=== PATIENT | female | born 1960 | race Caucasian/White ===

== ENCOUNTER 2022-01-11 23:52 | Inpatient (IN) | payer MEDICARE, MEDICAID ==
[~2022-01-11] VITALS: Ht 162.6 cm; Wt 59.1 kg
[~2022-01-11 23:52] MED LIST: ATOR20TA66 PO; BUPR-72 PO; ESCI20TA39 PO; GABA300C PO; KEP500T PO; LEVO100T9 PO; MULT-25 PO; [UNRECOGNIZED DRUG - CODE] PO
[2022-01-12 00:36] LABS: BASOPHILS # (AUTO) 0.1 X10'3 (0-0.2); EOSINOPHILS # (AUTO) 0.1 X10'3 (0-0.9); HEMOGLOBIN 12.2 g/dl (12.0-16.0); LYMPHOCYTES # (AUTO) 1.4 X10'3 (1.1-4.8); MEAN PLATELET VOLUME 6.5 FL (7.4-10.4); MONOCYTES # (AUTO) 0.5 X10'3 (0-0.9); NEUTROPHILS # (AUTO) 2.7 X10'3 (1.8-7.7); WHITE BLOOD COUNT 4.9 X10'3 (4.5-11.0)
[2022-01-12 00:37] LABS: EOSINOPHILS % (AUTO) 1.6 % (0-6); HEMATOCRIT 35.6 % (35.0-45.0); LYMPHOCYTES % (AUTO) 29.6 % (21-51); MEAN CORPUSCULAR HEMOGLOBIN 34.6 PG (27.0-31.0); MEAN CORPUSCULAR HGB CONC 34.3 g/dL (33.0-36.5); MEAN CORPUSCULAR VOLUME 100.8 FL (78-98); MONOCYTES % (AUTO) 10.7 % (2-12); NEUTROPHILS % (AUTO) 56.1 % (42-75); PLATELET COUNT 397 X10'3 (140-440); RED BLOOD COUNT 3.53 X10'6 (4.20-5.60)
--- NOTE | 2022-01-12 00:45 | NUR ---
pt presents to the ed tx area lethargic, sedated, aggitated in 4-point restraint via ems; per ems the pt has been combative, non-complaint, and possibly has drugs/etoh on board; per ems the pt has a hx of brain tumor, which was removed two years ago; the pt is unresponsive to verbal stimuli, and continued to be restless, combative and aggitated, at , pt on monitor
[2022-01-12 00:49] LABS: APTT 25 SECONDS (22-32)
[2022-01-12 00:53] LABS: ALANINE AMINOTRANSFERASE 44 U/L (12-78); ALBUMIN 3.8 G/DL (3.4-5.0); ALBUMIN/GLOBULIN RATIO 1.3 (1.1-1.5); ALKALINE PHOSPHATASE 167 IU/L (46-116); ANION GAP 13 (8-16); ASPARTATE AMINO TRANSFERASE 38 U/L (10-37); BILIRUBIN,TOTAL 0.6 MG/DL (0.1-1.0); BLOOD UREA NITROGEN 9 MG/DL (7-18); BUN/CREATININE RATIO 13.4 (6.6-38.0); CALCIUM 8.2 MG/DL (8.5-10.1); CHLORIDE 105 MMOL/L (99-107); CREATININE 0.67 MG/DL (0.40-0.90); GLUCOSE 134 MG/DL (70-104); POTASSIUM 3.4 MMOL/L (3.5-5.1); SODIUM 143 MMOL/L (135-145); TOTAL CARBON DIOXIDE 25.5 MMOL/L (24-32); TOTAL PROTEIN 6.7 G/DL (6.4-8.2); eGFR 90 ML/MIN
--- NOTE | 2022-01-12 01:00 | NUR ---
labs collected and sent
[2022-01-12] MEDS ORDERED: levetiracetam-NS 1000mg/100ml 100 ML IV ONE ×2 (01:30→02:25)
--- NOTE | 2022-01-12 01:30 | NUR ---
Head CT done
--- NOTE | 2022-01-12 01:35 | NUR ---
Seizure precaution initiated
--- NOTE | 2022-01-12 02:00 | NUR ---
pt medicated per mar
[2022-01-12] MEDS ORDERED: LORazepam 2 mg/ml vial IV ONE (02:20)
[2022-01-12] MEDS ORDERED: HYDR-3972 PO (02:26)
[2022-01-12] MEDS ORDERED: BACL10TA2 PO (02:26)
--- NOTE | 2022-01-12 02:30 | NUR ---
Pt awake, combative and confused, md aware
[2022-01-12] MEDS ORDERED: acetaminophen 325mg tablet PO PRN ×2 (02:40)
[2022-01-12] MEDS ORDERED: diphenhydrAMINE 50 mg/ml inj IV PRN (02:40)
[2022-01-12] MEDS ORDERED: magnesium 2GM in 50ml NS 50 ML IV PRN (02:40)
[2022-01-12] MEDS ORDERED: mag hydrox/Alum hydrox/simeth 30ml oral suspension PO PRN (02:40)
[2022-01-12] MEDS ORDERED: morphine 2 MG/ML inj. syringe IV PRN ×2 (02:40)
[2022-01-12] MEDS ORDERED: magnesium 4gm in 100ml NS 100 ML IV PRN (02:40)
[2022-01-12] MEDS ORDERED: dextrose 50%-water 50ml dispensing syringe IV PRN (02:40)
[2022-01-12] MEDS ORDERED: ondansetron 4mg rapidly disintigrating tab PO PRN (02:40)
[2022-01-12] MEDS ORDERED: magnesium hydroxide 30ml (MOM) UD suspension PO PRN (02:40)
[2022-01-12] MEDS ORDERED: HYDROcodone/acetaminophen 5mg/325mg tablet PO PRN (02:40)
[2022-01-12] MEDS ORDERED: acetaminophen 650mg rectal suppository RC PRN (02:40)
[2022-01-12] MEDS ORDERED: bisacodyl 10mg suppository rectal RC PRN (02:40)
[2022-01-12] MEDS ORDERED: haloperidol 5mg tablet PO PRN (02:40)
[2022-01-12] MEDS ORDERED: haloperidol lactate 5mg/ml inj IM PRN (02:40)
[2022-01-12] MEDS ORDERED: ondansetron/PF 4mg/2ml inj IV PRN (02:40)
[2022-01-12] MEDS ORDERED: potassium Cl 20 mEq SR tablet PO PRN (02:40)
[2022-01-12] MEDS ORDERED: diphenhydrAMINE 25mg capsule PO PRN (02:40)
[2022-01-12] MEDS ORDERED: magnesium Cl slow-release 64mg tablet PO PRN (02:40)
--- NOTE | 2022-01-12 02:45 | NUR ---
Straight cath for 150 cc clear yellow urine; pt lanre pro well.
[2022-01-12 03:03] LABS: CLARITY,URINE CLEAR (Clear); COLOR,URINE YELLOW (Yellow); GLUCOSE, URINE NEGATIVE (Neg); KETONES,URINE NEGATIVE (Neg); LEUKOCYTE ESTERASE ,URINE NEGATIVE (Neg); NITRITES, URINE NEGATIVE (Neg); OCCULT BLOOD,URINE MODERATE (Neg); PROTEIN,URINE NEGATIVE (Neg); UROBILINOGEN,URINE 0.2 E.U/dL (0.2-1.0)
[2022-01-12 03:17] LABS: UA COLLECTION TYPE STRAIGHT CATH
[2022-01-12 03:18] LABS: BACTERIA,URINE FEW /HPF (Neg); MUCUS STRANDS FEW /LPF (Neg); SQUAMOUS EPITHELIAL CELL,UR FEW /LPF (FEW); URINE AMPHETAMINE SCREEN NEGATIVE (Neg); URINE BARBITUATE SCREEN NEGATIVE (Neg); URINE BENZODIAZEPINES SCREEN NEGATIVE (Neg); URINE CANNABINOID SCREEN NEGATIVE (Neg); URINE COCAINE SCREEN NEGATIVE (Neg); URINE METHADONE SCREEN NEGATIVE (Neg); URINE OPIATE SCREEN NEGATIVE (Neg); URINE PHENCYCLIDINE SCREEN NEGATIVE (Neg); WBC,URINE 0-4 /HPF (0-4)
[2022-01-12] MEDS: dextrose 5%-1/2 normal saline 1,000 ML IV SCH ×3 (03:23→23:15)
[2022-01-12 03:52] LABS: CREATINE KINASE 95 U/L (26-192); LIPASE < 50 U/L (73-393); MAGNESIUM 1.6 MG/DL (1.5-2.4); PHOSPHORUS 3.2 MG/DL (2.3-4.5); POTASSIUM 3.1 MMOL/L (3.5-5.1)
[2022-01-12 04:33] LABS: HEMOGLOBIN A1C 5.3 % (4.5-6.2)
--- NOTE | 2022-01-12 05:30 | NUR ---
Call received from Minerva , claiming to be mother of pt., states the pt has been drinking and combative, all weekend. Minerva states the pt got stuck between the sofa and table, and that's when she decided to call the ambulance.
[2022-01-12] MEDS: docusate sod 100mg capsule PO SCH ×2 (07:27→20:00)
[2022-01-12] MEDS: pantoprazole 40MG/NS 100ML BAG 100 ML IV SCH (07:27)
[2022-01-12] MEDS: thiamine 100mg/ml 2ml inj. IV SCH ×3 (07:27→21:01)
[2022-01-12] MEDS: LORazepam 2 mg/ml vial IV PRN ×2 (07:28→09:31)
[2022-01-12] MEDS: rifaximin 550mg tablet PO SCH ×2 (08:00→20:00)
[2022-01-12] MEDS ORDERED: lactulose 20gm/30ml cup PO SCH (08:00)
[2022-01-12] MEDS: K and/or MAG REPLACEMENT MC SCH ×2 (08:19→20:00)
[2022-01-12] MEDS: heparin, porcine 5000 units/ml vial SQ SCH ×2 (08:20→21:01)
[2022-01-12] MEDS: potassium CL 10mEq/100ml bag 100 ML IV PRN ×3 (08:20→16:34)
[2022-01-12] MEDS: lactulose 20gm/30ml cup PO SCH ×3 (08:55→20:00)
[2022-01-12] MEDS: levetiracetam inj 750 MG in normal saline 100ml IV soln 100 ML IV SCH ×2 (09:30→21:02)
[2022-01-12 11:30] VITALS: BP 174/83
--- NOTE | 2022-01-12 11:30 | NUR ---
Patient arrived to the floor via gurney and required assist x3 to transfer to bed. Patient non responsive at this time and non-verbal. Vital signs obtained, and are within normal limits. Patient is excessively drooling, highly agitated, and resistive to care. This nurse and floor staff provided personal care and implemented seizure precautions. Patient appears to be sleeping at this time, with no signs of distress noted. IV fluids started per order, potassium replacement continued per protocol. Will re-evaluate mental status throughout remainder of shift.
[2022-01-12 14:00] VITALS: BP 161/93
--- NOTE | 2022-01-12 14:30 | NUR ---
Patient continues to sleep and is not easily arousable. Patient shaken with minimal response. Opens and closes eyes periodically when name is called. When moved, continues to return to the position on her left side and appears comfortable. IV fluids infusing per order. Incontinence care provided. Will continue to monitor.
--- NOTE | 2022-01-12 17:05 | NUR ---
Morning meds not given as patient is unresponsive and unable to take PO meds at this time.
--- NOTE | 2022-01-12 17:28 | NUR ---
Paged at this time with the following concern; Raisa Gutierrez RM [id number] Patient has been sleep since arrived on unit. Beginning to open eyes but can not talk. Appears to have left side facial drooping and drooling,, Can you come see the patient please. Nallely OSBORNE ext [phone]
[2022-01-12 18:00] VITALS: BP 157/90
--- NOTE | 2022-01-12 18:20 | NUR ---
Problems reprioritized. Patient report given, questions answered & plan of care reviewed with Lesa OSBORNE.
[2022-01-12] MEDS ORDERED: temazepam 15mg capsule PO PRN (21:00)
[2022-01-12] MEDS: folic acid 1mg/0.2ml inj IV SCH (21:01)
[2022-01-13 02:00] VITALS: BP 160/95
[2022-01-13] MEDS: lactulose 20gm/30ml cup PO SCH ×5 (02:00→21:35)
--- NOTE | 2022-01-13 04:00 | NUR ---
Pt is able to respond to verbal and touch stimuli.
[2022-01-13 06:00] VITALS: BP 166/90
--- NOTE | 2022-01-13 06:30 | NUR ---
Problems reprioritized. Patient report given, questions answered & plan of care reviewed with Fani OSBORNE.
[2022-01-13 06:45] LABS: BASOPHILS # (AUTO) 0.1 X10'3 (0-0.2); EOSINOPHILS # (AUTO) 0.2 X10'3 (0-0.9); HEMATOCRIT 36.8 % (35.0-45.0); HEMOGLOBIN 12.5 g/dl (12.0-16.0); LYMPHOCYTES # (AUTO) 1.7 X10'3 (1.1-4.8); LYMPHOCYTES % (AUTO) 20.3 % (21-51); MEAN CORPUSCULAR HEMOGLOBIN 34.9 PG (27.0-31.0); MEAN CORPUSCULAR HGB CONC 34.1 g/dL (33.0-36.5); MEAN CORPUSCULAR VOLUME 102.3 FL (78-98); MONOCYTES # (AUTO) 0.8 X10'3 (0-0.9); MONOCYTES % (AUTO) 9.3 % (2-12); NEUTROPHILS # (AUTO) 5.6 X10'3 (1.8-7.7); NEUTROPHILS % (AUTO) 67.4 % (42-75); PLATELET COUNT 365 X10'3 (140-440); RED CELL DISTRIBUTION WIDTH 16.5 % (11.5-14.5); WHITE BLOOD COUNT 8.3 X10'3 (4.5-11.0)
--- NOTE | 2022-01-13 07:09 | NUR ---
Ru consult: Noted ru 11, no open wounds documented. Addendum: 01/13/22 at [address] Amended: Links added.
[2022-01-13] MEDS: K and/or MAG REPLACEMENT MC SCH ×2 (08:00→20:00)
[2022-01-13 08:05] LABS: ALANINE AMINOTRANSFERASE 34 U/L (12-78); ALBUMIN 3.4 G/DL (3.4-5.0); ALBUMIN/GLOBULIN RATIO 1.3 (1.1-1.5); ALKALINE PHOSPHATASE 167 IU/L (46-116); ANION GAP 17 (8-16); ASPARTATE AMINO TRANSFERASE 48 U/L (10-37); BILIRUBIN,TOTAL 1.3 MG/DL (0.1-1.0); BLOOD UREA NITROGEN 6 MG/DL (7-18); BUN/CREATININE RATIO 10.5 (6.6-38.0); CALCIUM 8.2 MG/DL (8.5-10.1); CHLORIDE 107 MMOL/L (99-107); CREATININE 0.57 MG/DL (0.40-0.90); GLUCOSE 108 MG/DL (70-104); MAGNESIUM 1.4 MG/DL (1.5-2.4); POTASSIUM 3.3 MMOL/L (3.5-5.1); SODIUM 144 MMOL/L (135-145); TOTAL CARBON DIOXIDE 20.1 MMOL/L (24-32); TOTAL PROTEIN 6.1 G/DL (6.4-8.2); eGFR > 90 ML/MIN
[2022-01-13] MEDS: rifaximin 550mg tablet PO SCH ×2 (09:12→21:37)
[2022-01-13] MEDS: docusate sod 100mg capsule PO SCH ×2 (09:15→21:36)
[2022-01-13] MEDS: heparin, porcine 5000 units/ml vial SQ SCH ×2 (09:15→21:37)
--- NOTE | 2022-01-13 09:23 | NUR ---
Paged Dr. Berman with the following concern; Raisa Gutierrez rm [id number] Left arm swollen and warm to touch 4 plus edema
[2022-01-13 11:00] VITALS: BP 163/80
[2022-01-13] MEDS: pantoprazole 40MG/NS 100ML BAG 100 ML IV SCH (11:04)
[2022-01-13] MEDS: folic acid 1mg/0.2ml inj IV SCH (11:06)
[2022-01-13] MEDS ORDERED: acetaminophen 325mg tablet PO PRN (11:20)
[2022-01-13] MEDS ORDERED: acetaminophen 120MG suppository, rectal RC PRN (11:20)
[2022-01-13] MEDS: thiamine 100mg/ml 2ml inj. IV SCH ×3 (11:24→21:37)
[2022-01-13] MEDS: levetiracetam inj 750 MG in normal saline 100ml IV soln 100 ML IV SCH ×2 (11:24→21:37)
[2022-01-13] MEDS ORDERED: iohexol 300mg/ml 100ml inj. ONE (12:07)
[2022-01-13] MEDS ORDERED: LEVE500T99 PO (13:48)
[2022-01-13] MEDS ORDERED: ATOR40TA PO (13:50)
--- NOTE | 2022-01-13 14:53 | NUR ---
PRESSURE ULCER EDUCATION: DEFINITION: A pressure ulcer is an area of skin that breaks down when you stay in one position too long. The constant pressure against the skin reduces the blood flow to that area and the affected tissue dies. CAUSES: "Being bedridden or in a wheelchair "Fragile skin "Having a chronic condition, such as diabetes or vascular disease "Inability to move certain parts of your body without assistance "Older age "Incontinence of urine or stool SYMPTOMS: "A reddened area that DOES NOT turn white when pressed on - this can be the beginning of a pressure ulcer "A blister, deep sore or a crater - these can be advanced pressure ulcers FIRST AID: "Relieve the pressure on this area "Keep the area clean and dry "Call your primary doctor if you see any of the above symptoms "DO NOT massage the area "DO NOT use a donut shaped or ring shaped pillow- these actually interfere with the blood flow and cause complications PREVENTION: "Check for pressure ulcers everyday "Change position at least every two hours to relieve pressure "Use items that help relieve pressure- pillows, sheepskin, foam padding, and powders. "Keep skin clean and dry "Eat healthy well balanced meals "Exercise daily IF YOU SEE ANY OF THESE SYMPTOMS WHILE IN THE HOSPITAL - TELL YOUR NURSE IMMEDIATELY. IF YOU SEE ANY OF THESE SYMPTOMS WHILE AT HOME OR HAVE ANY QUESTIONS OR CONCERNS ABOUT PRESSURE ULCERS - CALL YOUR PRIMARY DOCTOR IMMEDIATELY. Addendum: 01/13/22 at 1453 by Uma Cheung RN Amended: Links added.
[2022-01-13 15:00] VITALS: BP 142/72
[2022-01-13 18:00] VITALS: BP 178/89
[2022-01-13] MEDS: dextrose 5%-1/2 normal saline 1,000 ML IV SCH ×2 (18:40→20:00)
[2022-01-13] MEDS: potassium Cl 20 mEq SR tablet PO PRN (21:36)
[2022-01-14] MEDS ORDERED: baclofen 10mg tablet PO PRN (00:25)
[2022-01-14] MEDS ORDERED: VANCOMYCIN 1GM/200ML IVPB 200 ML IV SCH (01:00)
[2022-01-14] MEDS: lactulose 20gm/30ml cup PO SCH ×5 (01:07→16:00)
[2022-01-14] MEDS: potassium Cl 20 mEq SR tablet PO PRN ×3 (01:09→11:15)
[2022-01-14] MEDS: piperacillin/tazo 4.5gm/100ml 100 ML IV SCH ×2 (01:33→11:32)
[2022-01-14 02:30] VITALS: BP 162/80
[2022-01-14] MEDS ORDERED: LORazepam 2 mg/ml vial IV PRN (02:40)
[2022-01-14] MEDS ORDERED: LORazepam 1 MG tablet PO PRN (02:40)
[2022-01-14] MEDS: dextrose 5%-1/2 normal saline 1,000 ML IV SCH (04:40)
[2022-01-14 06:00] VITALS: BP 137/75
[2022-01-14 07:26] LABS: BASOPHILS # (AUTO) 0.1 X10'3 (0-0.2); BASOPHILS % (AUTO) 1.3 % (0-1); EOSINOPHILS # (AUTO) 0.2 X10'3 (0-0.9); EOSINOPHILS % (AUTO) 3.8 % (0-6); HEMATOCRIT 31.1 % (35.0-45.0); HEMOGLOBIN 10.8 g/dl (12.0-16.0); LYMPHOCYTES # (AUTO) 1.5 X10'3 (1.1-4.8); LYMPHOCYTES % (AUTO) 25.6 % (21-51); MEAN CORPUSCULAR HEMOGLOBIN 35.1 PG (27.0-31.0); MEAN CORPUSCULAR HGB CONC 34.7 g/dL (33.0-36.5); MEAN CORPUSCULAR VOLUME 101.1 FL (78-98); MEAN PLATELET VOLUME 6.9 FL (7.4-10.4); MONOCYTES # (AUTO) 0.5 X10'3 (0-0.9); MONOCYTES % (AUTO) 9.2 % (2-12); NEUTROPHILS # (AUTO) 3.6 X10'3 (1.8-7.7); NEUTROPHILS % (AUTO) 60.1 % (42-75); PLATELET COUNT 362 X10'3 (140-440); RED BLOOD COUNT 3.08 X10'6 (4.20-5.60); RED CELL DISTRIBUTION WIDTH 16.1 % (11.5-14.5); WHITE BLOOD COUNT 5.9 X10'3 (4.5-11.0)
[2022-01-14 07:52] LABS: ALANINE AMINOTRANSFERASE 27 U/L (12-78); ALBUMIN 3.2 G/DL (3.4-5.0); ALBUMIN/GLOBULIN RATIO 1.3 (1.1-1.5); ALKALINE PHOSPHATASE 142 IU/L (46-116); ANION GAP 14 (8-16); ASPARTATE AMINO TRANSFERASE 25 U/L (10-37); BILIRUBIN,TOTAL 0.7 MG/DL (0.1-1.0); BLOOD UREA NITROGEN 4 MG/DL (7-18); BUN/CREATININE RATIO 6.8 (6.6-38.0); CALCIUM 7.9 MG/DL (8.5-10.1); CHLORIDE 107 MMOL/L (99-107); CREATININE 0.59 MG/DL (0.40-0.90); GLUCOSE 95 MG/DL (70-104); MAGNESIUM 1.4 MG/DL (1.5-2.4); POTASSIUM 3.4 MMOL/L (3.5-5.1); SODIUM 142 MMOL/L (135-145); TOTAL CARBON DIOXIDE 20.9 MMOL/L (24-32); TOTAL PROTEIN 5.7 G/DL (6.4-8.2); eGFR > 90 ML/MIN
[2022-01-14] MEDS ORDERED: levetiracetam 250mg tablet PO SCH (08:00)
[2022-01-14] MEDS ORDERED: buPROPion SR 150mg tablet PO SCH (08:00)
[2022-01-14] MEDS: docusate sod 100mg capsule PO SCH (08:00)
[2022-01-14] MEDS ORDERED: atorvastatin 20mg tablet PO SCH (08:00)
[2022-01-14] MEDS ORDERED: ESCITALOPRAM OXALATE 5 MG TABLET PO SCH (08:00)
[2022-01-14] MEDS ORDERED: levoTHYROXINE 100mcg tablet PO SCH (08:00)
[2022-01-14] MEDS: levetiracetam inj 750 MG in normal saline 100ml IV soln 100 ML IV SCH (08:00)
[2022-01-14] MEDS: K and/or MAG REPLACEMENT MC SCH (08:00)
[2022-01-14] MEDS: pantoprazole 40MG/NS 100ML BAG 100 ML IV SCH (09:13)
[2022-01-14] MEDS: rifaximin 550mg tablet PO SCH (09:21)
[2022-01-14] MEDS: gabapentin 300mg capsule PO SCH ×2 (09:22→15:22)
[2022-01-14] MEDS: heparin, porcine 5000 units/ml vial SQ SCH (09:23)
[2022-01-14] MEDS: thiamine 100mg/ml 2ml inj. IV SCH ×2 (09:23→15:28)
[2022-01-14] MEDS ORDERED: VANCOMYCIN 1GM/200ML IVPB 250 ML IV SCH (10:50)
[2022-01-14] MEDS ORDERED: vancomycin/NS 1 GM ADD-VANTAGE 250 ML IV SCH ×2 (10:56→13:00)
[2022-01-14 11:00] VITALS: BP 143/73
[2022-01-14] MEDS: folic acid 1mg/0.2ml inj IV SCH (11:16)
[2022-01-14 15:00] VITALS: BP 103/60
[2022-01-14] MEDS ORDERED: THIA50TA10 PO (15:22)
[2022-01-14] MEDS ORDERED: LACT10SO3 PO (15:22)
[2022-01-14] MEDS ORDERED: PANT40TA54 PO (15:22)
[2022-01-14] MEDS ORDERED: MULT-1085 PO (15:22)
[2022-01-14] MEDS ORDERED: CEFD300C3 PO (15:22)
[2022-01-14] MEDS ORDERED: RIFA550T PO (15:22)
[2022-01-14] MEDS ORDERED: MAGN400C PO (15:22)
[2022-01-14] MEDS ORDERED: POTA-207 PO (15:22)
[2022-01-14] MEDS ORDERED: FOLI0.4T6 PO (15:22)
--- NOTE | 2022-01-14 17:22 | NUR ---
Patient discharged to home at this time with all personal belongings. This nurse educated patient on discharge instructions and emphasized the importance of refraining from alcohol consumption. Patient stated she intends on seeking outpatient treatment center for additional resources.
[2022-01-14] MEDS ORDERED: piperacillin/tazo 4.5gm/100ml 100 ML IV SCH (20:00)
[2022-01-15] MEDS ORDERED: VANCOMYCIN LEVEL IV ONE (12:30)
[2022-01-16] MEDS ORDERED: LORazepam 1 MG tablet PO PRN (02:40)
[2022-01-16] MEDS ORDERED: LORazepam 2 mg/ml vial IV PRN (02:40)
[2022-01-16] MEDS ORDERED: thiamine 100mg tablet PO SCH (08:00)
[2022-01-16] MEDS ORDERED: folic acid 1mg tablet PO SCH (08:00)
== END 2022-01-14 17:16 | disposition home health service (06) | DRG 441 ==
LOC: ER 23:52 → ED HOLD 01-12 02:44 → PCU 3S 01-12 11:41
PROVIDERS: ADMIT Family Medicine; ATTEND Family Medicine
DX: K72.90 Hepatic failure, unspecified without coma (principal); G93.41 Metabolic encephalopathy; F10.129 Alcohol abuse with intoxication, unspecified; E87.6 Hypokalemia; E78.5 Hyperlipidemia, unspecified; G40.909 Epilepsy, unspecified, not intractable, without status epilepticus; G89.4 Chronic pain syndrome; I10 Essential (primary) hypertension; R29.810 Facial weakness; Z79.891 Long term (current) use of opiate analgesic; Z79.899 Other long term (current) drug therapy
CPT/HCPCS: 36415; 70450; 71045; 73201; 80053; 80305; 80320; 81001; 82140; 82550; 83036; 83690; 83735; 83880; 84100; 84132; 84145; 84443; 85025; 85610; 85730; 87081; 93005; 93971; 96374; 97161; 97530; 99285; C9113; G0378; J1200; J1630; J1644; J1953; J2060; J2543; J3370; J3411; J3475; J3480; J3490; J7042; Q9967; U0003; U0005

== ENCOUNTER 2022-03-30 09:01 | Emergency (ER) | payer MEDICARE, MEDICAID ==
[~2022-03-30] VITALS: Ht 160 cm; Wt 56.2 kg
[~2022-03-30 09:01] MED LIST changes: -ATOR20TA66 PO; +ATOR40TA PO; +BACL10TA2 PO; +HYDR-3972 PO; -KEP500T PO; +LACT10SO3 PO; +LEVE500T99 PO; +MAGN400C PO; +MULT-1085 PO; -MULT-25 PO; +PANT40TA54 PO; +RIFA550T PO; +THIA50TA10 PO; -[UNRECOGNIZED DRUG - CODE] PO
[2022-03-30 10:15] VITALS: BP 113/55
[2022-03-30] MEDS ORDERED: CEPH250T PO (10:37)
== END 2022-03-30 11:04 | disposition home or self-care (01) ==
LOC: ER 09:01
DX: S01.111A Laceration without foreign body of right eyelid and periocular area, initial encounter (principal); S06.0X9A Concussion with loss of consciousness of unspecified duration, initial encounter; R51.9 Headache, unspecified; R11.0 Nausea; Z98.890 Other specified postprocedural states; Z79.2 Long term (current) use of antibiotics; Z79.899 Other long term (current) drug therapy; W19.XXXA Unspecified fall, initial encounter; Y93.89 Activity, other specified; Y92.89 Other specified places as the place of occurrence of the external cause; Y99.8 Other external cause status
CPT/HCPCS: 70450; 70486; 99284

== ENCOUNTER 2023-01-06 15:08 | Emergency (ER) | payer MEDICARE, MEDICAID ==
[~2023-01-06] VITALS: Ht 160 cm; Wt 54.4 kg
[~2023-01-06 15:08] MED LIST changes: -ATOR40TA PO; +ATOR40TA72 PO; -BACL10TA2 PO; +FOLI0.4T14 PO; +HYDR-3686 PO; -LACT10SO3 PO; +LEVE10006 PO; -LEVE500T99 PO; -MAGN400C PO; -MULT-1085 PO; +PANT-47 PO; -PANT40TA54 PO; -RIFA550T PO; +THIA100T66 PO; -THIA50TA10 PO
[2023-01-06] MEDS ORDERED: normal saline 1000ML IV soln IVB ONE (16:15)
[2023-01-06 16:38] LABS: BASOPHILS # (AUTO) 0.1 X10'3 (0-0.2); BASOPHILS % (AUTO) 0.8 % (0-1); EOSINOPHILS % (AUTO) 0.2 % (0-6); HEMATOCRIT 35.9 % (35.0-45.0); HEMOGLOBIN 12.2 g/dl (12.0-16.0); LYMPHOCYTES # (AUTO) 1.1 X10'3 (1.1-4.8); MEAN CORPUSCULAR HEMOGLOBIN 33.8 PG (27.0-31.0); MEAN CORPUSCULAR VOLUME 99.6 FL (78-98); MEAN PLATELET VOLUME 6.7 FL (7.4-10.4); MONOCYTES # (AUTO) 0.9 X10'3 (0-0.9); MONOCYTES % (AUTO) 6.6 % (2-12); NEUTROPHILS # (AUTO) 11.1 X10'3 (1.8-7.7); NEUTROPHILS % (AUTO) 84.4 % (42-75); PLATELET COUNT 323 X10'3 (140-440); RED CELL DISTRIBUTION WIDTH 16.2 % (11.5-14.5); WHITE BLOOD COUNT 13.1 X10'3 (4.5-11.0)
[2023-01-06 16:53] LABS: ALANINE AMINOTRANSFERASE 17 U/L (12-78); ALBUMIN 3.3 G/DL (3.4-5.0); ALBUMIN/GLOBULIN RATIO 1.1 (1.1-1.5); ALKALINE PHOSPHATASE 138 IU/L (46-116); ANION GAP 16 (8-16); ASPARTATE AMINO TRANSFERASE 31 U/L (10-37); BILIRUBIN,TOTAL 0.6 MG/DL (0.1-1.0); BLOOD UREA NITROGEN 14 MG/DL (7-18); BUN/CREATININE RATIO 11.1 (6.6-38.0); CALCIUM 7.6 MG/DL (8.5-10.1); CHLORIDE 97 MMOL/L (99-107); CREATININE 1.26 MG/DL (0.40-0.90); GLUCOSE 121 MG/DL (70-104); SODIUM 139 MMOL/L (135-145); TOTAL CARBON DIOXIDE 26.4 MMOL/L (24-32); TOTAL PROTEIN 6.2 G/DL (6.4-8.2); eGFR 43 ML/MIN
[2023-01-06 16:54] LABS: POTASSIUM 2.8 MMOL/L (3.5-5.1)
[2023-01-06] MEDS ORDERED: potassium CL 10mEq/100ml bag 100 ML IV ONE (17:00)
[2023-01-06] MEDS ORDERED: potassium Cl 20 mEq SR tablet PO ONE (17:00)
[2023-01-06] MEDS ORDERED: LORazepam 2 mg/ml vial IV ONE (17:25)
[2023-01-06] MEDS ORDERED: LIDOCAINE 2%/EPI 1:100,000 inj. Multi-dose 20 ML VIAL IJ ONE (17:55)
--- NOTE | 2023-01-06 18:19 | NUR ---
Violette LOMELI suturing laceration to back of head.
--- NOTE | 2023-01-06 18:21 | NUR ---
xylocaine 10 mg/1 ml used , approx 10 ml used for sutures
[2023-01-06 18:25] LABS: APTT 26 SECONDS (22-32)
[2023-01-06 18:29] VITALS: BP 129/87
--- NOTE | 2023-01-06 19:05 | NUR ---
1835 recieved report from violeta sanderson assumed care of pt. PA at bedside completing suture of laceration site above skull fx. Pt AOx4 with hx of sz s/p unwitness fall with impact on cement. Pt to be transferred to [facility] due to trauma activation. Pt aware of new plan of care acknowledged understanding verbally all questions and concerns addressed to pt's vebal satisfaction.
--- NOTE | 2023-01-06 19:11 | NUR ---
1900 report called to [facility] ER, Leigha RN at 1854. EMS at bedside for transport. Report and transfer paperwork given to Jerome [employer]er [employer] [facility] [address] now assuming care of pt.
== END 2023-01-06 19:18 | disposition short-term general hospital (02) ==
LOC: ER 15:08
DX: S02.119A Unspecified fracture of occiput, initial encounter for closed fracture (principal); E87.6 Hypokalemia; F10.20 Alcohol dependence, uncomplicated; R56.9 Unspecified convulsions; Y90.9 Presence of alcohol in blood, level not specified; W19.XXXA Unspecified fall, initial encounter; Y93.89 Activity, other specified; Y92.89 Other specified places as the place of occurrence of the external cause; Y99.8 Other external cause status
CPT/HCPCS: 12002; 36415; 70450; 72125; 80053; 85025; 85610; 85730; 93005; 96361; 96374; 99285; J2060; J7030; A6402; A6449

== ENCOUNTER 2023-02-16 12:12 | Emergency (ER) | payer MEDICARE, MEDICAID ==
[~2023-02-16] VITALS: Ht 160 cm; Wt 52.3 kg
[2023-02-16 12:57] LABS: BASOPHILS # (AUTO) 0.1 X10'3 (0-0.2); BASOPHILS % (AUTO) 1.3 % (0-1); EOSINOPHILS # (AUTO) 0.1 X10'3 (0-0.9); EOSINOPHILS % (AUTO) 1.5 % (0-6); HEMATOCRIT 31.3 % (35.0-45.0); HEMOGLOBIN 10.5 g/dl (12.0-16.0); LYMPHOCYTES # (AUTO) 1.9 X10'3 (1.1-4.8); LYMPHOCYTES % (AUTO) 36.8 % (21-51); MEAN CORPUSCULAR HEMOGLOBIN 34.7 PG (27.0-31.0); MEAN CORPUSCULAR HGB CONC 33.5 g/dL (33.0-36.5); MEAN CORPUSCULAR VOLUME 103.4 FL (78-98); MEAN PLATELET VOLUME 6.8 FL (7.4-10.4); MONOCYTES # (AUTO) 0.7 X10'3 (0-0.9); MONOCYTES % (AUTO) 13.8 % (2-12); NEUTROPHILS # (AUTO) 2.4 X10'3 (1.8-7.7); NEUTROPHILS % (AUTO) 46.6 % (42-75); PLATELET COUNT 346 X10'3 (140-440); RED BLOOD COUNT 3.03 X10'6 (4.20-5.60); RED CELL DISTRIBUTION WIDTH 16.2 % (11.5-14.5); WHITE BLOOD COUNT 5.2 X10'3 (4.5-11.0)
[2023-02-16 13:09] LABS: ALANINE AMINOTRANSFERASE 16 U/L (12-78); ALBUMIN/GLOBULIN RATIO 0.8 (1.1-1.5); ALKALINE PHOSPHATASE 87 IU/L (46-116); ANION GAP 12 (8-16); ASPARTATE AMINO TRANSFERASE 32 U/L (10-37); BILIRUBIN,TOTAL 0.1 MG/DL (0.1-1.0); BLOOD UREA NITROGEN 3 MG/DL (7-18); BUN/CREATININE RATIO 4.3 (10.0-20.0); CALCIUM 6.4 MG/DL (8.5-10.1); CHLORIDE 109 MMOL/L (99-107); CREATINE KINASE 39 U/L (26-192); CREATININE 0.69 MG/DL (0.40-0.90); ETHANOL 0.284 GM/DL (0.0-0.010); GLUCOSE 97 MG/DL (70-104); SODIUM 144 MMOL/L (135-145); TOTAL CARBON DIOXIDE 23.4 MMOL/L (24-32); TOTAL PROTEIN 4.4 G/DL (6.4-8.2); eGFR 86 ML/MIN
[2023-02-16 13:13] LABS: POTASSIUM 2.2 MMOL/L (3.5-5.1)
[2023-02-16 14:00] VITALS: BP 97/55
--- NOTE | 2023-02-16 14:00 | NUR ---
Pt had pulled IV out, does not disclose why. Pt IV fluids had completed and SBP 96-110. Dr. Motta updated on pt status and received VO to leave IV out and have pt continue and rest as pt sobbering up.
[2023-02-16] MEDS ORDERED: POTASSIUM BICARB 20meq eff tab 20 MEQ TABLET.EFF PO STA ×2 (15:20→15:27)
[2023-02-16] MEDS ORDERED: potassium chloride 10mEq ER tablet PO ONE (15:26)
[2023-02-17] MEDS ORDERED: potassium chloride 10mEq ER tablet PO SCH (08:00)
== END 2023-02-16 16:13 | disposition home or self-care (01) ==
LOC: ER 12:13
DX: F10.920 Alcohol use, unspecified with intoxication, uncomplicated (principal); Z79.899 Other long term (current) drug therapy; Z79.1 Long term (current) use of non-steroidal anti-inflammatories (NSAID); Y90.9 Presence of alcohol in blood, level not specified
CPT/HCPCS: 36415; 80053; 80320; 82550; 85025; 99283